=== PATIENT | female | born 1955 | race African-American/Black ===

== ENCOUNTER 2024-08-24 04:39 | Emergency (ER) | payer OTHER ==
[~2024-08-24] VITALS: Ht 167.6 cm; Wt 125.0 kg
[2024-08-24] VITALS (9 sets, daily range): BP systolic 93–111; BP diastolic 37–66; PULSE 70–82; RESP 14; TEMP 36.28068–37.1; O2SAT 98–100
[2024-08-24 06:17] LABS: BASOPHILS % 0.5 % (0.0-2.0); DIFFERENTIAL COMMENT 0; EOSINOPHILS % 3.1 % (0.0-5.0); HEMATOCRIT. 39.3 % (36.0-48.0); HEMOGLOBIN. 12.4 g/dL (12.0-16.0); LYMPHOCYTES % 20.4 % (20.0-50.0); MEAN CORPUSCULAR HGB CONC 31.6 g/dL (31.0-37.0); MEAN CORPUSCULAR VOLUME 104.6 fL (81.0-99.0); MEAN PLATELET VOLUME 7.7 fl (7.4-10.4); MONOCYTES % 10.7 % (2.0-8.0); NEUTROPHILS % 65.3 % (40.0-76.0); PLATELET 141 x1000/uL (130-400); RED BLOOD CELL COUNT 3.76 mill/uL (4.2-5.4); RED CELL DISTRIBUTION WIDTH 17.7 % (11.6-14.6); WHITE BLOOD COUNT 9.6 x1000/uL (4.5-11.0)
[2024-08-24 06:38] LABS: CARBON DIOXIDE 20 mEq/L (21-32); CHLORIDE 100 mEq/L (98-107)
[2024-08-24 06:39] LABS: CALCIUM 7.6 mg/dL (8.7-10.4)
[2024-08-24 06:42] LABS: SODIUM 134 mEq/L (136-145)
[2024-08-24 06:44] LABS: GLUCOSE 82 mg/dL (70-105)
[2024-08-24 06:45] LABS: TROPONIN I HIGH SENSITIVITY 17 ng/L (3.0-34)
[2024-08-24 06:54] LABS: UREA NITROGEN BLOOD 60 mg/dL (9-23)
[2024-08-24 07:04] LABS: POTASSIUM 8.4 mEq/L (3.5-5.1)
[2024-08-24 07:05] LABS: CREATININE 14.8 mg/dL (0.6-1.0)
[2024-08-24 08:20] LABS: POTASSIUM 5.4 mEq/L (3.5-5.1)
[2024-08-24] MEDS: SODIUM BICARBONATE 8.4% 50MEQ/50ML SYR IV ONE (08:31)
[2024-08-24] MEDS: ALBUTEROL (0.083%) 2.5MG/3ML NEB HHN ONE (08:32)
[2024-08-24] MEDS: DEXTROSE 50% WATER 50ML SYRINGE IV ONE (08:32)
[2024-08-24] MEDS: INSULIN REGULAR (HUMULIN R) 1000UNITS/10ML VIAL IV ONE (08:32)
[2024-08-24] MEDS: CALCIUM CHLORIDE 1GM/10ML SYR IV ONE (08:32)
[2024-08-24] MEDS: FUROSEMIDE 100MG/10ML VIAL IV STA (08:32)
[2024-08-24] MEDS: SODIUM CHLORIDE 0.9% 1,000 ML IV ONE (08:33)
[2024-08-24 08:34] LABS: HEPATITIS B SURFACE ANTIGEN NEGATIVE (Negative)
[2024-08-24 08:54] LABS: HEPATITIS A AB IGM NEGATIVE (Negative)
[2024-08-24 08:55] LABS: HEPATITIS B CORE AB IGM NEGATIVE (Negative); HEPATITIS C AB NON REACTIVE (Neg) (Negative)
[2024-08-24] MEDS ORDERED: GUAIFENESIN 200MG/10ML SUGAR FREE UDC PO PRN (09:30)
[2024-08-24] MEDS ORDERED: ACETAMINOPHEN 325MG TABLET PO PRN ×2 (09:30)
[2024-08-24] MEDS ORDERED: CLONIDINE 0.1MG TABLET PO PRN (09:30)
[2024-08-24] MEDS ORDERED: ONDANSETRON HCL 4MG/2ML INJ IV PRN (09:30)
[2024-08-24] MEDS ORDERED: IPRATROPIUM/ALBUTEROL 0.5-3(2.5)MG/3ML NEB HHN PRN (09:30)
[2024-08-24] MEDS ORDERED: MAGNESIUM/ALUMINUM HYDROXIDE/SIMETHICONE 30ML UDC PO PRN (09:30)
[2024-08-24] MEDS ORDERED: DOCUSATE SODIUM 100MG CAPSULE PO PRN (09:30)
[2024-08-24] MEDS: ENOXAPARIN 40MG/0.4ML SYR SUBCUT SCH (10:00)
[2024-08-24 10:08] LABS: PHOSPHORUS 5.2 mg/dL (2.5-4.9)
[2024-08-24] MEDS: WARFARIN SODIUM 10MG TABLET PO SCH (10:45)
[2024-08-24 12:01] LABS: INR 1.8; PROTHROMBIN TIME 18.3 sec (9.6-11.0)
[2024-08-24 12:18] LABS: VITAMIN B12 SERUM 1362 pg/mL (211-911)
[2024-08-24] MEDS: HEPARIN 5000 UNITS/ML VIAL SUBCUT SCH (12:24)
[2024-08-24] MEDS ORDERED: ENOXAPARIN 40MG/0.4ML SYR SUBCUT SCH (21:00)
[2024-08-25] MEDS ORDERED: PANTOPRAZOLE 40MG DR TABLET PO SCH (07:50)
== END 2024-08-24 12:52 | disposition left against medical advice (07) ==
LOC: ER 04:39 → CANBEDREQ 09:16 → ER 12:52
DX: I12.0 Hypertensive chronic kidney disease with stage 5 chronic kidney disease or end stage renal disease (principal); E87.5 Hyperkalemia; E78.00 Pure hypercholesterolemia, unspecified; F41.9 Anxiety disorder, unspecified; N18.6 End stage renal disease; I47.19 Other supraventricular tachycardia; Z79.01 Long term (current) use of anticoagulants; Z86.718 Personal history of other venous thrombosis and embolism; Z91.158 Patient's noncompliance with renal dialysis for other reason; Z99.2 Dependence on renal dialysis
CPT/HCPCS: 99291; 71045; 80048; 82550; 82607; 82746; 83735; 84100; 84132; 84520; 85025; 85610; 87340; 84484; 86709; 93005; 96372; 36415; 86705; J1644; J7030; 90935; J1650